=== PATIENT | female | born 1995 | race Caucasian/White ===

== ENCOUNTER 2020-09-21 17:38 | Outpatient (REF) | payer MEDICAID, SELFPAY | END 2020-09-21 17:39 | disposition home or self-care (01) | LOC: HO.LAB 17:38 | PROVIDERS: Visit Provider Internal Medicine | DX: Z20.828 Contact with and (suspected) exposure to other viral communicable diseases (principal) | CPT/HCPCS: C9803; U0003 ==

== ENCOUNTER 2022-08-15 21:00 | Emergency (ER) | payer MEDICAID, SELFPAY ==
[2022-08-15 23:25] VITALS: BP 104/49; PULSE 75; RESP 16; TEMP 36.2; O2SAT 98; BMI 32.5
[2022-08-16 02:07] VITALS: BP 101/48; PULSE 68; RESP 16; TEMP 36.6; O2SAT 98
[2022-08-16 04:20] VITALS: BP 121/73; PULSE 77; RESP 18; TEMP 36.2; O2SAT 96
--- NOTE | 2022-08-16 05:11 | ED.GENADULT ---
HPI - General Adult General Chief complaint: Animal Bite Stated complaint: tick bite Time Seen by Provider: 08/16/22 03:01 Source: patient Limitations: no limitations History of Present Illness HPI narrative: This is a 26-year-old female who noted a tick embedded in her left upper arm yesterday. The patient had [place] of park the day before. She is not sure how long the tick might have been have been in. It was a small dark take. The patient noted some redness around the tick but initially but then states is gone. The patient states she is primarily here because she needs a note for work for yesterday. Related Data Allergies Allergy/AdvReac Type Severity Reaction Status Date / Time bee pollen [bee stings] AdvReac Hives Verified 08/15/22 23:29 Review of Systems Review of Systems: As per HPI [facility] Social History Social History Advance Directives: No Physical Exam ED Vital Signs: Vital Signs - 24 hr 08/15/22 23:25 08/16/22 02:07 08/16/22 04:20 Temperature 97.1 F 97.8 F 97.2 F Pulse Rate 75 68 77 Respiratory Rate 16 16 18 Blood Pressure 104/49 L 101/48 L 121/73 Pulse Oximetry 98 98 96 Oxygen Delivery Method Room Air Room Air Room Air BMI result Body Mass Index 32.5 Const General: healthy appearing Resp Effort & Inspection: normal respiratory effort Auscultation: clear to auscultation bilaterally Cardio Rate: regular rate Rhythm: regular rhythm Heart sounds: S1 normal heart sound present and S2 normal heart sound present Skin Other: Drawn stebbins on left upper arm around where the tick bite was, however there is no erythema or remaining tick parts or evidence of a bite. Medical Decision Making MDM Narrative Medical decision making narrative: Patient with a tick bite, removed the tick herself. No evidence of infection or rash. Patient was treated with doxycycline 200 mg p.o. to prophylax Lyme disease Discharge Plan Discharge Clinical Impression: Tick bite Patient Disposition: Home, Self-Care Instructions: Tick Bite (ED) Additional Instructions: Follow-up with her primary care physician as needed. Return or see her primary care physician for any unusual symptoms such as fever, headache, muscle aches, joint aches Stand Alone Forms: Work/School Release Interventions: ED Discharge Assessment Last Done: 08/16/22 04:30 Discharge Date/Time: 08/16/22 04:31
== END 2022-08-16 04:31 | disposition home or self-care (01) ==
PROVIDERS: Emergency Provider Emergency Medicine
DX: S40.862A Insect bite (nonvenomous) of left upper arm, initial encounter (principal); W57.XXXA Bitten or stung by nonvenomous insect and other nonvenomous arthropods, initial encounter; Y93.9 Activity, unspecified; Y92.830 Public park as the place of occurrence of the external cause; Y99.9 Unspecified external cause status
CPT/HCPCS: 99283; 99284